=== PATIENT | female | born 1985 | race Asian ===

== ENCOUNTER 2017-04-09 05:18 | Inpatient (IN) | payer OTHER ==
[~2017-04-09] VITALS: Ht 163 cm; Wt 74.9 kg
[2017-04-09] MEDS ORDERED: RINGERS SOLUTION,LACTATED 1,000 ML IV ONE ×3 (06:02→16:45)
[2017-04-09 06:13] VITALS: BP 105/69
[2017-04-09] MEDS ORDERED: METOCLOPRAMIDE HCL 5 MG/ML 2 ML VIAL IVP ONE (06:15)
[2017-04-09] MEDS ORDERED: CITRIC ACID/SODIUM CITRATE 30 ML SOLUTION UDCUP PO ONE (06:15)
[2017-04-09 06:56] LABS: BASOPHILS % (AUTO) 0.2 % (0.0-2.0); EOSINOPHILS % (AUTO) 0.8 % (1.0-6.0); HEMATOCRIT 37.8 % (36-46); LYMPHOCYTES # (AUTO) 1.5 K/uL (1.0-4.8); MEAN CORPUSCULAR HEMOGLOBIN 23.2 pg (26.0-34.0); MEAN CORPUSCULAR HGB CONC 31.8 G/dL (31.0-37.0); MEAN CORPUSCULAR VOLUME 73 fL (80-100); MONOCYTES # (AUTO) 0.6 K/uL (0.1-1.0); MONOCYTES % (AUTO) 5.7 % (2.0-9.0); NEUTROPHILS # (AUTO) 9.2 K/uL (1.8-7.7); NEUTROPHILS % (AUTO) 80.3 % (40.0-70.0); RBC MORPHOLOGY COMMENT ABNORMAL RBC MORPH; RED BLOOD CELL COUNT(AUTO) 5.19 MIL/uL (4.00-5.20); RED CELL DISTRIBUTION WIDTH 15.5 % (11.5-14.5); WHITE BLOOD COUNT (AUTO) 11.4 K/uL (4.5-11.0)
[2017-04-09] MEDS ORDERED: MORPHINE SULFATE/PF 1 MG/ML 10 ML AMP ONE (07:12)
[2017-04-09] MEDS ORDERED: CeFAZolin 2 GM/DEXTROSE 50 ML IV ONE (07:12)
[2017-04-09] MEDS ORDERED: SODIUM CHLORIDE 0.9% 100 ML ONE (07:12)
[2017-04-09] MEDS ORDERED: FentaNYL CITRATE-PF 100 MCG/2 ML VIAL ONE (07:12)
[2017-04-09] MEDS ORDERED: GUM MASTIC/STORAX/MSAL/ALCOHOL LIQUID 0.67 ML VIAL TP ONE (07:19)
[2017-04-09] MEDS ORDERED: EPHEDrine SULFATE 50 MG/ML VIAL IM ONE (12:00)
[2017-04-09] MEDS ORDERED: 0.9% SODIUM CHLORIDE 10 ML VIAL IVP ONE (12:00)
[2017-04-09] MEDS ORDERED: KETOROLAC TROMETHAMINE 60 MG/2 ML VIAL IM ONE (12:00)
[2017-04-09] MEDS ORDERED: ONDANSETRON HCL 4 MG/2 ML VIAL IVP ONE (12:00)
[2017-04-09] MEDS ORDERED: OXYTOCIN 10 UNITS/ML VIAL IM ONE (12:00)
[2017-04-09] MEDS ORDERED: NALOXONE HCL 0.4 MG/ML VIAL IVP PRN (17:15)
[2017-04-09] MEDS ORDERED: MORPHINE SULFATE 2 MG/ML SYRINGE IVP PRN (17:15)
[2017-04-09] MEDS ORDERED: ACETAMINOPHEN 1000 MG/ISO-OSM 100 ML IV PRN ×2 (17:15)
[2017-04-09] MEDS ORDERED: NALBUPHINE HCL 10 MG/ML VIAL IVP PRN ×3 (17:15)
[2017-04-09] MEDS ORDERED: FentaNYL CITRATE-PF 100 MCG/2 ML VIAL IVP PRN ×4 (17:15)
[2017-04-09] MEDS ORDERED: DiphenhydrAMINE HCL 50 MG/ML VIAL IVP PRN ×2 (17:15)
[2017-04-09] MEDS ORDERED: ONDANSETRON HCL 4 MG/2 ML VIAL IVP PRN ×2 (17:15)
[2017-04-09] MEDS ORDERED: KETOROLAC TROMETHAMINE 30 MG/ML VIAL IVP ONE (17:15)
[2017-04-09] MEDS ORDERED: DiphenhydrAMINE HCL 50 MG/ML VIAL IM PRN (17:15)
[2017-04-09] MEDS ORDERED: DEXAMETHASONE SOD PHOS 4 MG/ML VIAL IVP PRN (17:15)
[2017-04-09] MEDS ORDERED: MEPERIDINE-PF 25 MG/ML SYRINGE IVP PRN (17:15)
[2017-04-09] MEDS ORDERED: OXYGEN THERAPY IH SCH ×4 (20:00)
[2017-04-09] MEDS ORDERED: MEASLES/MUMPS/RUBELLA VACCINE, LIVE 0.5 ML/VIAL SQ ONE (21:00)
[2017-04-09] MEDS: RINGERS SOLUTION,LACTATED 1,000 ML IV SCH (23:55)
[2017-04-10 06:17] LABS: BASOPHILS % (AUTO) 0.1 % (0.0-2.0); EOSINOPHILS % (AUTO) 0.4 % (1.0-6.0); HEMATOCRIT 32.1 % (36-46); HEMOGLOBIN 10.4 g/dL (12.0-16.0); LYMPHOCYTES # (AUTO) 0.9 K/uL (1.0-4.8); LYMPHOCYTES % (AUTO) 6.6 % (22.0-44.0); MEAN CORPUSCULAR HEMOGLOBIN 23.2 pg (26.0-34.0); MEAN CORPUSCULAR HGB CONC 32.3 G/dL (31.0-37.0); MEAN CORPUSCULAR VOLUME 72 fL (80-100); MONOCYTES # (AUTO) 0.5 K/uL (0.1-1.0); MONOCYTES % (AUTO) 4.1 % (2.0-9.0); NEUTROPHILS # (AUTO) 11.4 K/uL (1.8-7.7); RED BLOOD CELL COUNT(AUTO) 4.47 MIL/uL (4.00-5.20); RED CELL DISTRIBUTION WIDTH 15.3 % (11.5-14.5); WHITE BLOOD COUNT (AUTO) 12.9 K/uL (4.5-11.0)
[2017-04-10] MEDS: RINGERS SOLUTION,LACTATED 1,000 ML IV SCH ×2 (06:17→14:23)
[2017-04-10 07:10] LABS: NEUTROPHILS % (AUTO) 88.8 % (40.0-70.0)
[2017-04-10 07:44] LABS: RBC MORPHOLOGY COMMENT ABNORMAL RBC MORPH
[2017-04-10] MEDS: KETOROLAC TROMETHAMINE 30 MG/ML VIAL IVP PRN ×2 (09:45→18:55)
[2017-04-10] MEDS: MAGNESIUM HYDROXIDE SUSPENSION 30 ML UDCUP PO PRN (20:37)
[2017-04-10] MEDS ORDERED: ACETAMINOPHEN/CODEINE 300-30 MG TABLET PO PRN ×2 (21:00)
[2017-04-10] MEDS: IBUPROFEN 800 MG TABLET PO PRN (23:15)
[2017-04-11] MEDS: IBUPROFEN 800 MG TABLET PO PRN (05:53)
[2017-04-11] MEDS: MAGNESIUM HYDROXIDE SUSPENSION 30 ML UDCUP PO PRN (07:43)
[2017-04-11] MEDS ORDERED: IBUP-2070 PO (09:10)
[2017-04-11] MEDS ORDERED: FERR-89 PO (09:10)
[2017-04-11] MEDS ORDERED: TYL3B PO (09:10)
[2017-04-11] MEDS ORDERED: DSS100 PO (09:15)
== END 2017-04-11 15:25 | disposition home or self-care (01) | DRG 766 ==
LOC: 4S 05:18 → PREOBSVTOIN 04-14 05:36
PROVIDERS: ADMIT Obstetrics & Gynecology; ATTEND Obstetrics & Gynecology
PROC: 10D00Z1 Extraction of Products of Conception, Low, Open Approach (ICD-10-PCS; principal; 2017-04-09)
PROC: 3E0234Z Introduction of Serum, Toxoid and Vaccine into Muscle, Percutaneous Approach (ICD-10-PCS; 2017-04-09)
DX: O34.211 Maternal care for low transverse scar from previous cesarean delivery (principal); Z3A.39 39 weeks gestation of pregnancy; Z37.0 Single live birth; Z23 Encounter for immunization
CPT/HCPCS: 86850; 86900; 86901; 87081; 88302; 90707; J0131; J0690; J1885; J2405; J2590; J2765; J3010; J3490; J7050; J7120